=== PATIENT | female | born 1950 | race Two or more races ===

== ENCOUNTER 2017-09-30 12:27 | Outpatient (CLI) | payer OTHER ==
[~2017-09-30 12:27] MED LIST: BAYER ASPIRIN325 MG
== END 2017-09-30 17:13 | disposition home or self-care (01) ==
LOC: MAMO-SONO 12:27
DX: Z12.31 Encounter for screening mammogram for malignant neoplasm of breast (principal); Z87.898 Personal history of other specified conditions

== ENCOUNTER 2019-01-25 10:08 | Outpatient (CLI) | payer OTHER | END 2019-01-25 10:14 | disposition home or self-care (01) | LOC: RAD 10:08 | DX: M16.0 Bilateral primary osteoarthritis of hip (principal); R07.89 Other chest pain ==

== ENCOUNTER 2020-03-07 13:47 | Outpatient (CLI) | payer OTHER | END 2020-03-07 14:00 | disposition home or self-care (01) | LOC: MAMO-SONO 13:47 | DX: Z12.31 Encounter for screening mammogram for malignant neoplasm of breast (principal); N64.59 Other signs and symptoms in breast ==

== ENCOUNTER 2020-12-21 10:51 | Outpatient (CLI) | payer OTHER | END 2020-12-21 10:53 | disposition home or self-care (01) | LOC: NUCLEAR 10:51 | DX: M85.9 Disorder of bone density and structure, unspecified (principal); M81.0 Age-related osteoporosis without current pathological fracture ==

== ENCOUNTER 2020-12-21 11:09 | Outpatient (CLI) | payer OTHER | END 2020-12-21 11:21 | disposition home or self-care (01) | LOC: MAMO-SONO 11:09 | DX: N64.59 Other signs and symptoms in breast (principal); Z12.31 Encounter for screening mammogram for malignant neoplasm of breast ==

== ENCOUNTER 2021-08-13 10:59 | Outpatient (CLI) | payer OTHER | END 2021-08-13 11:00 | disposition home or self-care (01) | LOC: NUCLEAR 10:59 | DX: G45.9 Transient cerebral ischemic attack, unspecified (principal) ==